=== PATIENT | male | born 1955 | race Caucasian/White ===

== ENCOUNTER 2018-11-16 11:39 | Observation (INO) ==
[2018-11-16] MEDS ORDERED: DEMEROL INJ IVP PRN (13:42)
[2018-11-16] MEDS ORDERED: NS 1000 ML 1,000 ML IV SCH (13:42)
[2018-11-16 14:07] LABS: BASOPHILS # (AUTO) 0.1 X10^3/uL (0.0-0.1); BASOPHILS % (AUTO) 1.1 % (0.2-1.0); EOSINOPHILS # (AUTO) 0.1 x10^3/uL (0.0-0.2); HEMATOCRIT 47.1 % (42.0-54.0); HEMOGLOBIN 15.8 g/dL (13.5-18.0); LYMPHOCYTES # (AUTO) 1.8 X10^3/uL (1.3-2.9); LYMPHOCYTES % (AUTO) 22.9 % (21.0-51.0); MEAN CORPUSCULAR HEMOGLOBIN 30.5 pg (27.0-34.0); MEAN CORPUSCULAR HGB CONC 33.5 g/dL (33.0-35.0); MEAN CORPUSCULAR VOLUME 90.9 fL (80.0-100.0); MEAN PLATELET VOLUME 8.9 fL (7.4-11.0); MONOCYTES # (AUTO) 0.5 x10^3/uL (0.3-0.8); MONOCYTES % (AUTO) 6.9 % (0.0-13.0); NEUTROPHILS # (AUTO) 5.2 x10^3/uL (2.2-4.8); NEUTROPHILS % (AUTO) 68.1 % (42.0-75.0); PLATELET COUNT 198 X10^3/uL (150.0-450.0); RED BLOOD COUNT 5.18 X10^6/uL (4.7-6.0); RED CELL DISTRIBUTION WIDTH 13.4 % (11.6-16.5); WHITE BLOOD COUNT 7.6 X10^3/uL (3.6-10.0)
[2018-11-16 14:20] LABS: ALANINE AMINOTRANSFERASE 44 Units/L (12-78); ALBUMIN 4.5 g/dL (3.4-5.0); ALKALINE PHOSPHATASE 91 Units/L (46-116); ASPARTATE AMINO TRANSFERASE 31 Units/L (15-37); BLOOD UREA NITROGEN 11 mg/dL (7-18); CALCIUM 9.9 mg/dL (8.5-10.1); CARBON DIOXIDE 29.1 mmol/L (21-32); CHLORIDE 104 mmol/L (98-107); CREATININE 1.19 mg/dL (0.70-1.30); SODIUM 140 mmol/L (136-145); TOTAL PROTEIN 8.1 g/dL (6.4-8.2); eGFR NON BLACK RACES > 60 (>60)
[2018-11-16 14:22] VITALS: BMI 28.8
[2018-11-16] MEDS ORDERED: NS 100 ML IV 100 ML IV ONE (16:02)
--- NOTE | 2018-11-16 16:47 | CT ---
CT OF THE ABDOMEN AND PELVIS WITH CONTRAST HISTORY: Epigastric pain Comparison: 12/02/2016 Technique: Multiple axial images of the abdomen and pelvis were obtained from the lung bases to the pubic symphysis follow the administration of IV contrast as well as oral contrast. Dose reduction techniques including Automated Exposure Control (AEC) and adjustment of mA and kV were utlized. Findings: The heart is normal in size. There is no pericardial effusion. Lung bases are clear without focal consolidation, pleural effusion or pneumothorax. Liver and spleen are normal in size, enhancement characteristics and contour. No focal lesions. The portal vein is patent. No ductal dilitation. Gallbladder is present. No calcified gallstones or gallbladder wall thickening. The pancreas is unremarkable. Adrenal glands are normal. 6 mm nonobstructing right renal stone. No hydronephrosis. No bowel obstruction or inflammation. Normal appendix. Fat containing and mildly inflamed appearing umbilical hernia with mouth measuring 1.5 cm on series 4, image 56. No free fluid or fluid collections. Diverticulosis without focal diverticular inflammation The bladder is normal in appearance. Prostate not enlarged. No free fluid or abnormal pelvic lymph nodes. No aggressive osseous lesions. IMPRESSION: 1. Fat containing umbilical hernia with signs of inflammation. Correlate with physical examination. 2. Nonobstructing right-sided renal stone. Reported By:
[2018-11-16 17:10] LABS: BILIRUBIN,URINE NEGATIVE (NEGATIVE); BLOOD/HEMOGLOBIN,URINE NEGATIVE (NEGATIVE); GLUCOSE, URINE NEGATIVE (NEGATIVE); KETONES,URINE NEGATIVE (NEGATIVE); LEUKOCYTE ESTERASE ,URINE NEGATIVE (NEGATIVE); NITRITES,URINE NEGATIVE (NEGATIVE); PROTEIN,URINE NEGATIVE (NEGATIVE); UROBILINOGEN,URINE NORMAL (NORMAL)
[2018-11-16 17:44] LABS: APPEARANCE,URINE CLEAR (CLEAR); COLOR,URINE YELLOW (YELLOW)
[2018-11-16] MEDS: ANCEF VIAL 1 GRAM IVP SCH (22:13)
[2018-11-16] MEDS: NS 1000 ML 1,000 ML IV SCH (22:14)
[2018-11-17] MEDS: ANCEF VIAL 1 GRAM IVP SCH (05:38)
[2018-11-17 05:40] LABS: BASOPHILS # (AUTO) 0.1 X10^3/uL (0.0-0.1); BASOPHILS % (AUTO) 0.9 % (0.2-1.0); EOSINOPHILS # (AUTO) 0.2 x10^3/uL (0.0-0.2); EOSINOPHILS % (AUTO) 3.2 % (0.9-2.9); HEMATOCRIT 41.8 % (42.0-54.0); LYMPHOCYTES # (AUTO) 1.6 X10^3/uL (1.3-2.9); LYMPHOCYTES % (AUTO) 26.6 % (21.0-51.0); MEAN CORPUSCULAR HEMOGLOBIN 30.8 pg (27.0-34.0); MEAN CORPUSCULAR HGB CONC 33.6 g/dL (33.0-35.0); MEAN CORPUSCULAR VOLUME 91.6 fL (80.0-100.0); MEAN PLATELET VOLUME 9.2 fL (7.4-11.0); MONOCYTES # (AUTO) 0.6 x10^3/uL (0.3-0.8); MONOCYTES % (AUTO) 9.6 % (0.0-13.0); NEUTROPHILS # (AUTO) 3.6 x10^3/uL (2.2-4.8); NEUTROPHILS % (AUTO) 59.7 % (42.0-75.0); PLATELET COUNT 169 X10^3/uL (150.0-450.0); RED BLOOD COUNT 4.56 X10^6/uL (4.7-6.0); RED CELL DISTRIBUTION WIDTH 13.5 % (11.6-16.5)
[2018-11-17 05:46] LABS: ALANINE AMINOTRANSFERASE 32 Units/L (12-78); ALBUMIN 3.2 g/dL (3.4-5.0); ALKALINE PHOSPHATASE 69 Units/L (46-116); ASPARTATE AMINO TRANSFERASE 23 Units/L (15-37); BLOOD UREA NITROGEN 12 mg/dL (7-18); CALCIUM 8.3 mg/dL (8.5-10.1); CARBON DIOXIDE 27.8 mmol/L (21-32); CHLORIDE 106 mmol/L (98-107); COR CA(FOR HYPOALB) 8.9 mg/dL (8.5-10.1); CREATININE 1.12 mg/dL (0.70-1.30); SODIUM 142 mmol/L (136-145); TOTAL PROTEIN 6.2 g/dL (6.4-8.2); eGFR NON BLACK RACES > 60 (>60)
[2018-11-17] MEDS ORDERED: STERILE WATER IRRIGATION IR ONE (09:19)
[2018-11-17] MEDS: NS 1000 ML 1,000 ML IV SCH ×3 (09:29→21:41)
[2018-11-17] MEDS ORDERED: DILAUDID INJ ONE (10:23)
[2018-11-17] MEDS ORDERED: FENTANYL INJ 100 mcg ONE (10:24)
[2018-11-17] MEDS ORDERED: ANCEF 1 GRAM IV PREMIX* 1 G/50 ML BAG IV ONE (10:44)
[2018-11-17] MEDS ORDERED: MARCAINE 0.5% ONE (11:56)
--- NOTE | 2018-11-17 12:02 | DR.UPDATE ---
H&P Update History and Physical Update: WAS SEEN IN THE OFFICE TODAY FOR ABDOMINAL PAIN AND AN UMBILICAL HERNIA. HE WAS ADMITTED FOR FURTHER EVALUATION AND TREATMENT OF INTRACTABLE PAIN. WE PLAN TO CONSULT . PATIENT HAS BEEN SEEN AND EXAMINED WITH NO OTHER CHANGES TO H&P. Changes noted: NO Yes with the following:
[2018-11-17] MEDS ORDERED: BACTROBAN TOPICAL OINT ONE (12:17)
[2018-11-17] MEDS ORDERED: BACITRACIN VIAL ONE (12:38)
[2018-11-17] MEDS ORDERED: REGLAN INJ 10 MG VIAL IVP PRN (12:56)
[2018-11-17] MEDS ORDERED: DILAUDID INJ IVP PRN ×2 (12:56→13:56)
[2018-11-17] MEDS ORDERED: PHENERGAN INJ 25 MG IVP PRN (12:56)
[2018-11-17] MEDS ORDERED: BENADRYL INJ 50 MG VIAL IVP PRN (12:56)
[2018-11-17] MEDS ORDERED: ZOFRAN INJ 4 MG VIAL IVP PRN (12:56)
[2018-11-17] MEDS: ZOFRAN INJ 4 MG VIAL IVP PRN ×2 (13:56→19:13)
[2018-11-17] MEDS ORDERED: QUELICIN (OR ANECTINE) ONE (14:46)
[2018-11-17] MEDS ORDERED: TORADOL 30 MG VIAL ONE (14:46)
[2018-11-17] MEDS ORDERED: DIPRIVAN VIAL ONE (14:46)
[2018-11-17] MEDS ORDERED: ULTANE GAS IN ONE (14:46)
[2018-11-17] MEDS ORDERED: ZOFRAN INJ 4 MG VIAL ONE (14:46)
[2018-11-17] MEDS ORDERED: VERSED ONE (14:46)
[2018-11-17] MEDS ORDERED: NORCURON INJ 10 MG VIAL ONE (14:46)
[2018-11-17] MEDS ORDERED: NEOSTIGMINE INJ ONE (14:46)
[2018-11-17] MEDS ORDERED: ROBINUL ONE (14:46)
[2018-11-17] MEDS: PERCOCET TAB 5/325 MG PO PRN (16:05)
[2018-11-17] MEDS: ANCEF 1 GRAM IV PREMIX IV SCH ×2 (21:35→21:40)
[2018-11-17] MEDS ORDERED: PHENERGAN INJ 25 MG IV PRN (21:39)
[2018-11-18 05:29] LABS: BASOPHILS % (AUTO) 0.5 % (0.2-1.0); EOSINOPHILS % (AUTO) 0.1 % (0.9-2.9); HEMATOCRIT 39.2 % (42.0-54.0); HEMOGLOBIN 13.2 g/dL (13.5-18.0); LYMPHOCYTES # (AUTO) 1.4 X10^3/uL (1.3-2.9); LYMPHOCYTES % (AUTO) 14.2 % (21.0-51.0); MEAN CORPUSCULAR HEMOGLOBIN 30.7 pg (27.0-34.0); MEAN CORPUSCULAR HGB CONC 33.6 g/dL (33.0-35.0); MEAN CORPUSCULAR VOLUME 91.5 fL (80.0-100.0); MEAN PLATELET VOLUME 9.3 fL (7.4-11.0); MONOCYTES # (AUTO) 0.8 x10^3/uL (0.3-0.8); MONOCYTES % (AUTO) 7.8 % (0.0-13.0); NEUTROPHILS # (AUTO) 7.6 x10^3/uL (2.2-4.8); NEUTROPHILS % (AUTO) 77.4 % (42.0-75.0); PLATELET COUNT 157 X10^3/uL (150.0-450.0); RED BLOOD COUNT 4.29 X10^6/uL (4.7-6.0); RED CELL DISTRIBUTION WIDTH 13.3 % (11.6-16.5); WHITE BLOOD COUNT 9.9 X10^3/uL (3.6-10.0)
[2018-11-18] MEDS: NS 1000 ML 1,000 ML IV SCH (05:45)
[2018-11-18 05:47] LABS: ALANINE AMINOTRANSFERASE 29 Units/L (12-78); ALKALINE PHOSPHATASE 66 Units/L (46-116); ASPARTATE AMINO TRANSFERASE 19 Units/L (15-37); BLOOD UREA NITROGEN 15 mg/dL (7-18); CALCIUM 8.1 mg/dL (8.5-10.1); CARBON DIOXIDE 24.9 mmol/L (21-32); CHLORIDE 106 mmol/L (98-107); COR CA(FOR HYPOALB) 8.9 mg/dL (8.5-10.1); CREATININE 1.13 mg/dL (0.70-1.30); SODIUM 140 mmol/L (136-145); TOTAL PROTEIN 5.9 g/dL (6.4-8.2); eGFR NON BLACK RACES > 60 (>60)
[2018-11-18] MEDS: ANCEF 1 GRAM IV PREMIX IV SCH (06:02)
[2018-11-18] MEDS: PERCOCET TAB 5/325 MG PO PRN (08:30)
[2018-11-18 13:50] VITALS: BP 166/88
== END 2018-11-18 12:15 | disposition home or self-care (01) ==
LOC: MED/SURG
PROVIDERS: ADMIT Internal Medicine; ATTEND Internal Medicine
DX: Z79.899 Other long term (current) drug therapy; I10 Essential (primary) hypertension; R10.84 Generalized abdominal pain; K42.0 Umbilical hernia with obstruction, without gangrene; Z79.01 Long term (current) use of anticoagulants
CPT/HCPCS: 36415; 74177; 80053; 81003; 85025; 93005; 96367; 96372; 96374; A4216; A4222; J3490; S0020; G0378; J0330; J0690; J1170; J1885; J2175; J2250; J2405; J2550; J2704; J2710; J3010; J7030; J7050